=== PATIENT | male | born 1975 | race Caucasian/White ===

== ENCOUNTER 2017-03-15 16:54 | Emergency (ER) | payer BC ==
[2017-03-15 17:08] VITALS: BP 167/98
[2017-03-15] MEDS ORDERED: Ketorolac 60 MG/2 ML SDV IM ONE (17:15)
[2017-03-15] MEDS ORDERED: Acetaminophen/oxyCODONE 325-5 MG Tab PO ONE (17:16)
--- NOTE | 2017-03-15 17:43 | EDM.PDOC ---
ED HPI GENERAL MEDICAL PROBLEM - General Chief Complaint: ENT Problem Stated Complaint: INFECTED TOOTH Time Seen by Provider: 03/15/17 17:40 Source of Information: Reports: Patient, Family History Limitations: Reports: No Limitations - History of Present Illness INITIAL COMMENTS - FREE TEXT/NARRATIVE: pt a rrived here with a painful left lower post molar. He spiked a temp of 103 at home. He has a 101 degree temop now, The pain in the ttoth has increased markedly. Onset: Today Duration: Hour(s): Location: Reports: Face Associated Symptoms: Reports: Other ( total body aches. ) Left Lower Tooth/Teeth Pain Score (Numeric/FACES): 10 - Related Data Allergies Allergy/AdvReac Type Severity Reaction Status Date / Time naproxen [From Naprosyn] Allergy Abdominal Verified 03/15/17 17:20 Pain Home Meds: Home Meds Ibuprofen 600 mg PO Q4HR PRN 03/24/15 [History] Past Medical History Musculoskeletal History: Reports: Back Pain, Chronic Neurological History: Reports: Concussion Social & Family History - Tobacco Use Smoking Status *Q: Former Smoker Years of Tobacco use: 20 Used Tobacco, but Quit: Yes Month Tobacco Last Used: 8 years ago Second Hand Smoke Exposure: No - Caffeine Use Caffeine Use: Reports: Coffee, Soda - Recreational Drug Use Recreational Drug Use: No ED ROS ENT - Review of Systems Review Of Systems: See Below Constitutional: Reports: Fever, Chills, Malaise HEENT: Reports: Dental Pain, Other ( Pt has increased pain in the left lower molar area. ) Respiratory: Reports: No Symptoms Cardiovascular: Reports: No Symptoms Endocrine: Reports: No Symptoms GI/Abdominal: Reports: No Symptoms : Reports: No Symptoms ED EXAM, ENT - Physical Exam Exam: See Below Text/Narrative:: pt arrived with a elevated temp and increased pain in the lower molar. on the left. Exam Limited By: No Limitations General Appearance: Alert, Anxious, Moderate Distress Ears: Normal TMs Nose: Normal Inspection Mouth/Throat: Other ( carious tooth in the posterior molar in lower left) Head: Atraumatic Neck: Normal Inspection Respiratory/Chest: No Respiratory Distress Cardiovascular: Regular Rate, Rhythm GI/Abdominal: Soft, Non-Tender (Male) Exam: Deferred Rectal (Males) Exam: Deferred Back: Normal Inspection Extremities: Normal Inspection, Normal Capillary Refill Psychiatric: Normal Affect Course - Vital Signs Last Recorded V/S: Last Vital Signs Temp 38.6 C H 03/15/17 17:13 Pulse 118 H 03/15/17 17:13 Resp 13 03/15/17 17:13 BP 167/98 H 03/15/17 17:13 Pulse Ox 96 03/15/17 17:13 - Orders/Labs/Meds Orders: Active Orders 24 hr Category Date Time Status UA W/MICROSCOPIC [URIN] Urgent Lab 03/15/17 17:33 Received Labs: Laboratory Tests 03/15/17 03/15/17 Range/Units 17:25 17:25 WBC 8.4 (4.5-11.0) K/uL RBC 5.50 (4.30-5.90) M/uL Hgb 16.6 H (12.0-15.0) g/dL Hct 47.5 (40.0-54.0) % MCV 86 (80-98) fL MCH 30 (27-31) pg MCHC 35 (32-36) % Plt Count 134 L (150-400) K/uL Neut % (Auto) 82 H (36-66) % Lymph % (Auto) 9 L (24-44) % Iron % (Auto) 9 H (2-6) % Eos % (Auto) 0 L (2-4) % Baso % (Auto) 1 (0-1) % Sodium 135 L (140-148) mmol/L Potassium 4.0 (3.6-5.2) mmol/L Chloride 100 (100-108) mmol/L Carbon Dioxide 26 (21-32) mmol/L Anion Gap 13.0 (5.0-14.0) mmol/L BUN 13 (7-18) mg/dL Creatinine 1.0 (0.8-1.3) mg/dL Est Cr Clr Drug Dosing 107.78 mL/min Estimated GFR (MDRD) > 60 (>60) Glucose 108 H (74-106) mg/dL Calcium 8.7 (8.5-10.1) mg/dL Total Bilirubin 0.7 (0.2-1.0) mg/dL AST 22 (15-37) U/L ALT 55 (12-78) U/L Alkaline Phosphatase 84 (46-116) U/L Total Protein 8.0 (6.4-8.2) g/dL Albumin 4.1 (3.4-5.0) g/dL Globulin 3.9 H (2.3-3.5) g/dL Albumin/Globulin Ratio 1.1 L (1.2-2.2) Meds: Medications Discontinued Medications Generic Name Dose Route Start Last Admin Trade Name Freq PRN Reason Stop Dose Admin Ketorolac Tromethamine 60 mg 03/15/17 17:15 03/15/17 17:31 Toradol IM 03/15/17 17:16 60 mg ONETIME ONE Administration Oxycodone/Acetaminophen 1 tab 03/15/17 17:16 03/15/17 17:30 Percocet 325-5 Mg PO 03/15/17 17:17 1 tab ONETIME ONE Administration - Re-Assessments/Exams Free Text/Narrative Re-Assessment/Exam: 03/15/17 17:59 pt was given rocephen 1gm im, torodol 60mg . tick studies were drawn because of the high fever. Departure - Departure Time of Disposition: 18:04 Disposition: Home, Self-Care 01 Condition: Fair Clinical Impression: Infected tooth - Discharge Information Referrals: PCP,None [Primary Care Provider] - Forms: ED Department Discharge Care Plan Goals: push fluids, motrin 600mg tid, norco 5/325 q6h prn for pain, clindomycin 300mg tid, dental referal. . - My Orders Last 24 Hours: My Active Orders 03/15/17 17:33 UA W/MICROSCOPIC [URIN] Urgent - Assessment/Plan Last 24 Hours: My Active Orders 03/15/17 17:33 UA W/MICROSCOPIC [URIN] Urgent
[2017-03-15] MEDS ORDERED: cefTRIAXone 1 GM, Lidocaine 1% 2.1 ML IM ONE ×2 (17:55)
== END 2017-03-15 18:44 | disposition home or self-care (01) ==
LOC: JP.ED 16:54
DX: K04.7 Periapical abscess without sinus (principal); Z88.8 Allergy status to other drugs, medicaments and biological substances; Z87.891 Personal history of nicotine dependence
CPT/HCPCS: 36415; 80053; 81001; 85025; 86618; 86666; 96372; 99283; A9270; J0696; J1885

== ENCOUNTER 2017-11-22 11:17 | Emergency (ER) | payer BC ==
[2017-11-22 11:37] VITALS: BP 144/92
--- NOTE | 2017-11-22 12:01 | EDM.PDOC ---
ED HPI GENERAL MEDICAL PROBLEM - General Chief Complaint: Lower Extremity Injury/Pain Stated Complaint: RIGHT HIP PAIN Time Seen by Provider: 11/22/17 11:56 Source of Information: Reports: Patient History Limitations: Reports: No Limitations - History of Present Illness INITIAL COMMENTS - FREE TEXT/NARRATIVE: pt woke up with severe pain in his rt hip/ He has had a total hip. He is doing some better at this point but it still feels very tight. Onset: Today, Sudden Duration: Hour(s): Location: Reports: Lower Extremity, Right Associated Symptoms: Reports: No Other Symptoms right hip Pain Score (Numeric/FACES): 4 - Related Data Allergies Allergy/AdvReac Type Severity Reaction Status Date / Time naproxen [From Naprosyn] Allergy Abdominal Verified 11/22/17 11:34 Pain Home Meds: Home Meds Ibuprofen 600 - 1,000 mg PO BID 03/24/15 [History] Past Medical History Cardiovascular History: Reports: Hypertension Musculoskeletal History: Reports: Back Pain, Chronic, Osteoarthritis Neurological History: Reports: Concussion Endocrine/Metabolic History: Reports: Obesity/BMI 30+ - Past Surgical History Musculoskeletal Surgical History: Reports: Arthroscopic Procedure, Hip Replacement Social & Family History - Tobacco Use Smoking Status *Q: Never Smoker Years of Tobacco use: 20 Used Tobacco, but Quit: Yes Month Tobacco Last Used: 8 years ago Second Hand Smoke Exposure: No - Caffeine Use Caffeine Use: Reports: None - Alcohol Use Days Per Week of Alcohol Use: 2 Number of Drinks Per Day: 2 Total Drinks Per Week: 4 - Recreational Drug Use Recreational Drug Use: No Review of Systems - Review of Systems Review Of Systems: See Below Constitutional: Reports: No Symptoms Eyes: Reports: No Symptoms Ears: Reports: No Symptoms Nose: Reports: No Symptoms Mouth/Throat: Reports: No Symptoms Respiratory: Reports: No Symptoms Cardiovascular: Reports: No Symptoms GI/Abdominal: Reports: No Symptoms Musculoskeletal: Reports: Other (pain in the rt hip. ) Neurological: Reports: No Symptoms ED EXAM, GENERAL - Physical Exam Exam: See Below Free Text/Narrative:: pt arrived with pain in the rt hip This came on quite acutely this am and was severe for awhile and is now better. He had a total hip done in Jun. He was concerned that it was dislocated. Exam Limited By: No Limitations General Appearance: Alert, Anxious, Moderate Distress Ears: Normal TMs Nose: Normal Inspection Throat/Mouth: Normal Inspection Head: Atraumatic Neck: Normal Inspection Respiratory/Chest: No Respiratory Distress Cardiovascular: Regular Rate, Rhythm GI/Abdominal: Soft, Non-Tender (Male) Exam: Deferred Rectal (Males) Exam: Deferred Back Exam: Other (pain in the lateral hip. He has no pain over the buttock area. he has no pain down the back of the hip. ) Neurological: Alert, Oriented, Normal Cognition Course - Vital Signs Last Recorded V/S: Last Vital Signs Temp 36.7 C 11/22/17 11:39 Pulse 104 H 11/22/17 11:39 Resp 18 11/22/17 11:39 BP 144/92 H 11/22/17 11:39 Pulse Ox 97 11/22/17 11:39 - Orders/Labs/Meds Orders: Active Orders 24 hr Category Date Time Status Hip Min 2V or 3V Rt [CR] Stat Exams 11/22/17 11:28 Taken - Re-Assessments/Exams Free Text/Narrative Re-Assessment/Exam: 11/22/17 12:21 xray of the hip was done which looks completely intact and no sign of dislocation. He has alot of muscle tightness around the hip . He has a rash which does not look like shingles. He has a history of a total body rash and I feel this is a occurence of this over the incision. Departure - Departure Time of Disposition: 12:23 Disposition: Home, Self-Care 01 Condition: Fair Clinical Impression: Muscle spasm, Hip joint replacement status - Discharge Information Referrals: Layton Bishop [employer] [Primary Care Provider] - Forms: ED Department Discharge Care Plan Goals: moist warm heat to area, range of motion, flexeril 10mg hs to relax muscles. motrin as needed for pain If persistent problems see Dr Staples in the next 4- 5 days. - My Orders Last 24 Hours: My Active Orders 11/22/17 11:28 Hip Min 2V or 3V Rt [CR] Stat - Assessment/Plan Last 24 Hours: My Active Orders 11/22/17 11:28 Hip Min 2V or 3V Rt [CR] Stat
--- NOTE | 2017-11-22 13:45 | CR ---
Hip Min 2V or 3V Rt HISTORY: Hip replacement, pain. COMPARISON: None FINDINGS: Right hip arthroplasty change. Excellent alignment. No acute fracture.
== END 2017-11-22 12:33 | disposition home or self-care (01) ==
LOC: JP.ED 11:17
DX: M62.838 Other muscle spasm (principal); Z96.641 Presence of right artificial hip joint; Z87.891 Personal history of nicotine dependence
CPT/HCPCS: 73502-26-RT; 73502-RT; 99284

== ENCOUNTER 2019-04-28 11:02 | Emergency (ER) | payer BC ==
[2019-04-28 11:28] VITALS: PULSE 74
[2019-04-28] MEDS ORDERED: fentaNYL 100 MCG/2 ML SDV IVPUSH PRN (11:33)
--- NOTE | 2019-04-28 11:41 | EDM.PDOC ---
ED HPI GENERAL MEDICAL PROBLEM - General Chief Complaint: Lower Extremity Injury/Pain Stated Complaint: MEDICAL VIA [facility] Time Seen by Provider: 04/28/19 11:30 Source of Information: Reports: Patient History Limitations: Reports: No Limitations - History of Present Illness INITIAL COMMENTS - FREE TEXT/NARRATIVE: Left hip and leg pain for a couple of days, and it significantly increased to day while in the shower. Pain is actually in the left SIJ and radiates into the left leg. it is sharp and severe. Increased with weight bearing. No position feels better. Pain radiates into the left leg and is associated with left anterior thigh numbness. No weakness, saddle paresthesias, bowel or bladder problems. History of bilateral JOSEY in 2017 and 18. No history of back problems. Not immunosuppressed. Hasn't used anything for pain. Left Hip Pain Score (Numeric/FACES): 7 - Related Data Allergies Allergy/AdvReac Type Severity Reaction Status Date / Time naproxen [From Naprosyn] Allergy Abdominal Verified 04/28/19 11:23 Pain Home Meds: Home Meds NK [No Known Home Meds] 04/28/19 [History] Past Medical History HEENT History: Reports: Impaired Vision Cardiovascular History: Reports: Hypertension Respiratory History: Reports: Sleep Apnea Musculoskeletal History: Reports: Back Pain, Chronic, Osteoarthritis Neurological History: Reports: Concussion Endocrine/Metabolic History: Reports: Obesity/BMI 30+ - Past Surgical History Musculoskeletal Surgical History: Reports: Arthroscopic Procedure, Hip Replacement Social & Family History - Tobacco Use Smoking Status *Q: Former Smoker Used Tobacco, but Quit: Yes Month/Year Tobacco Last Used: 0 - Caffeine Use Caffeine Use: Reports: None - Alcohol Use Days Per Week of Alcohol Use: 2 Number of Drinks Per Day: 5 Total Drinks Per Week: 10 - Recreational Drug Use Recreational Drug Use: No Review of Systems - Review of Systems Review Of Systems: See Below Eyes: Reports: No Symptoms Ears: Reports: No Symptoms Nose: Reports: No Symptoms Mouth/Throat: Reports: No Symptoms Respiratory: Reports: No Symptoms Cardiovascular: Reports: No Symptoms GI/Abdominal: Reports: No Symptoms Genitourinary: Reports: No Symptoms Musculoskeletal: Reports: Back Pain, Leg Pain, Muscle Stiffness Skin: Reports: No Symptoms Neurological: Reports: Numbness, Paresthesia Psychiatric: Reports: No Symptoms ED EXAM, GENERAL - Physical Exam Exam: See Below Exam Limited By: No Limitations General Appearance: Alert, WD/WN, Moderate Distress, Obese Respiratory/Chest: No Respiratory Distress Back Exam: No: CVA Tenderness (R), CVA Tenderness (L), Paraspinal Tenderness, Vertebral Tenderness Extremities: Normal Range of Motion, Non-Tender Neurological: Alert, Oriented, Normal Cognition, Normal Reflexes Psychiatric: Normal Affect, Normal Mood, Anxious Skin Exam: Warm, Dry Course - Vital Signs Last Recorded V/S: Last Vital Signs Temp 35.9 C 04/28/19 15:00 Pulse 74 04/28/19 15:00 Resp 16 04/28/19 15:00 BP 144/84 H 04/28/19 15:00 Pulse Ox 96 04/28/19 15:00 - Orders/Labs/Meds Orders: Active Orders 24 hr Category Date Time Status fentaNYL [Sublimaze] Med 04/28/19 11:33 Active 50 mcg IVPUSH Q6H PRN Medication Orders Fentanyl (Sublimaze) 50 mcg IVPUSH Q6H PRN PRN Reason: Pain (severe 7-10) Last Admin: 04/28/19 11:45 Dose: 50 mcg Labs: Laboratory Tests 04/28/19 04/28/19 Range/Units 14:06 14:06 WBC 6.5 (4.5-11.0) K/uL RBC 5.24 (4.30-5.90) M/uL Hgb 15.6 H D (12.0-15.0) g/dL Hct 46.7 (40.0-54.0) % MCV 89 (80-98) fL MCH 30 (27-31) pg MCHC 33 (32-36) % Plt Count 141 L (150-400) K/uL Neut % (Auto) 73 H (36-66) % Lymph % (Auto) 19 L (24-44) % [place] % (Auto) 7 H (2-6) % Eos % (Auto) 0 L (2-4) % Baso % (Auto) 1 (0-1) % ESR 8 (0-20) mm/hr Sodium 138 L (140-148) mmol/L Potassium 4.4 (3.6-5.2) mmol/L Chloride 104 (100-108) mmol/L Carbon Dioxide 23 (21-32) mmol/L Anion Gap 15.4 H (5.0-14.0) mmol/L BUN 15 (7-18) mg/dL Creatinine 1.0 (0.8-1.3) mg/dL Est Cr Clr Drug Dosing 105.62 mL/min Estimated GFR (MDRD) > 60 (>60) Glucose 149 H (74-106) mg/dL Calcium 9.2 (8.5-10.1) mg/dL Meds: Medications Generic Name Dose Route Start Last Admin Trade Name Freq PRN Reason Stop Dose Admin Fentanyl 50 mcg 04/28/19 11:33 04/28/19 11:45 Sublimaze IVPUSH 50 mcg Q6H PRN Administration Pain (severe 7-10) Discontinued Medications Generic Name Dose Route Start Last Admin Trade Name Freq PRN Reason Stop Dose Admin Hydromorphone HCl 1 mg 04/28/19 12:14 04/28/19 12:49 Dilaudid IVPUSH 04/28/19 12:15 1 mg ONETIME ONE Administration Hydromorphone HCl 1 mg 04/28/19 15:38 Dilaudid IVPUSH 04/28/19 15:39 ONETIME ONE - Re-Assessments/Exams Free Text/Narrative Re-Assessment/Exam: 04/28/19 11:44 The patient was examined and pain meds and xray ordered. Free Text/Narrative Re-Assessment/Exam: 04/28/19 12:16 xray reviewed and discussed with the patient and his . No new abnormalities on the images were noted. He was given dilaudid 1 mg IV. Discussed disposition and will reassess in 1 hour to see if he can go home. Free Text/Narrative Re-Assessment/Exam: 04/28/19 14:09 Unable to ambulate due to pain. Contacted hospitalist at [facility]. He asked for more w/u. CT lumbar spine and labs ordered. 04/28/19 15:29 He has normal labs including CBC, basic metabolic profile and ESR. He had a lumbar CT that showed mild spinal stenosis at L3-4 and L4-5. Discussed with Dr Teresa (Hospitalist at [facility] in [place]) and he accepted the patient in transfer. The patient and his agree with his plan. Departure - Departure Time of Disposition: 15:40 Disposition: DC/Tfer to Medicaid Nur Fac 64 Condition: Good, Fair Clinical Impression: Hip joint replacement status, Intractable back pain - Discharge Information *PRESCRIPTION DRUG MONITORING PROGRAM REVIEWED*: Not Applicable *COPY OF PRESCRIPTION DRUG MONITORING REPORT IN PATIENT VANE: Not Applicable Instructions: Muscle Strain, [id number] Referrals: Layton Bishop NP [Primary Care Provider] - Forms: ED Department Discharge, ED Summary Discharge - My Orders Last 24 Hours: My Active Orders 04/28/19 11:33 fentaNYL [Sublimaze] 50 mcg IVPUSH Q6H PRN - Assessment/Plan Last 24 Hours: My Active Orders 04/28/19 11:33 fentaNYL [Sublimaze] 50 mcg IVPUSH Q6H PRN
[2019-04-28] MEDS ORDERED: HYDROmorphone 1 MG/ML Syringe IVPUSH ONE ×2 (12:14→15:38)
--- NOTE | 2019-04-28 13:07 | CRLCR ---
INDICATION: Left hip pain. COMPARISON: None available. FINDINGS: The left hip was examined with PA and frogleg lateral views for a total of two views. The components of a left total hip prosthesis are in anatomic alignment, with no sign of fracture, loosening, or dislocation. The visualized bony pelvis and soft tissues are normal in appearance. IMPRESSION: Satisfactory appearance of components of a left total hip prosthesis. Nothing seen to correlate with history of pain. Dictated by Raymond Adame MD @ Apr 28 2019 1:03PM Signed by Dr. Raymond Adame @ Apr 28 2019 1:04PM
--- NOTE | 2019-04-28 15:12 | CRLCT ---
INDICATION: Back pain COMPARISON: None available TECHNIQUE: CT examination of the lumbar spine is performed with spiral technique without contrast. 3 mm thick axial, sagittal and coronal reconstructions were made. 3D surface rendered reconstructions were made with rotation around the vertical axis. Please note that all CT scans at this facility use dose modulation, iterative reconstruction, and/or weight-based dosing when appropriate to reduce radiation dose to as low as reasonably achievable. FINDINGS: : There is minimal scoliosis of the lumbar spine convex towards the left with the apex at the L4 level. The vertebral bodies are normal in height and they are in anatomic alignment. There is no sign of fracture or subluxation. 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 T12-L1: Normal. L1-2: Normal. L2-3: Normal disc centrally with no sign of spinal stenosis. There is mild bilateral lateral disc bulging into the neural foramina without contact with the exiting nerve roots. L3-4: Mild spinal stenosis from congenital narrowing, mild diffuse disc bulging, and mild ligamentum flavum hypertrophy. The AP thecal sac diameter is decreased to 10 millimeters. There is mild bilateral lateral disc bulging into the neural foramina without contact with the exiting nerve roots. L4-5: Mild spinal stenosis from congenital narrowing, mild diffuse disc bulging, and mild ligamentum flavum hypertrophy. The AP thecal sac diameter is decreased to 11 millimeters. Moderate right lateral disc bulging into the neural foramina with osteophytic ridging, effacing a mild amount of perineural fat from around the right L4 nerve root, indicating mild compression of the nerve root. Mild left lateral disc bulging into the neural foramina without contact with the exiting nerve root. L5-S1: Minimal diffuse disc bulging which comes in contact with the anterior thecal sac but does not narrow it. No spinal stenosis. There is mild bilateral lateral disc bulging into the neural foramina without contact with the exiting nerve roots. Intervertebral discs are normal in height. The visualized abdominal viscera is normal in appearance. IMPRESSION: Mild spinal stenosis at L3-4 and L4-5. Mild compression of the right L4 nerve root in the right L4-5 neural foramina from moderate lateral disc bulging and osteophytic ridging. Please note that all CT scans at this facility use dose modulation, iterative reconstruction, and/or weight-based dosing when appropriate to reduce radiation dose to as low as reasonably achievable. Dictated by Raymond Adame MD @ Apr 28 2019 3:02PM Signed by Dr. Raymond Adame @ Apr 28 2019 3:11PM
[2019-04-28 15:20] VITALS: BP 144/84
== END 2019-04-28 16:06 ==
LOC: JP.ED 11:02
DX: M54.5 Low back pain (principal); I10 Essential (primary) hypertension; Z96.641 Presence of right artificial hip joint; Z88.6 Allergy status to analgesic agent; Z87.891 Personal history of nicotine dependence
CPT/HCPCS: 36415; 72131; 73502; 80048; 85025; 85651; 96374; 96375; 96376; 99284; J1170; J3010

== ENCOUNTER 2020-02-02 00:13 | Emergency (ER) | payer BC ==
--- NOTE | 2020-02-02 00:46 | EDM.PDOC ---
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 He denies any specific injury or overexertion. The pain is centered between both scapulae and radiates to the right and left and extends into each arm to the level of the elbow on the medial aspect of each elbow. He golfed earlier on 31 January for 3-1/2 hours but didn't notice a distinctly sharper change at once. He tried a single dose of ibuprofen at home which didn't change anything. He has a history of allergic rhinitis and also degenerative joint disease with bilateral hip arthroplasty, the last arthroplasty being 18 months ago. He would not have come in tonight however at home his blood pressure was elevated into the 180 range and he and his became concerned, prompting him to drive and tonight. The pain in the back does not seem to travel up or down the back to any degree. He has no change in strength or sensation in either arm. Onset: Gradual Duration: Hour(s): (8) Location: Reports: Back Quality: Reports: Ache Severity: Moderate Improves with: Reports: None Worsens with: Reports: None Associated Symptoms: Denies: Chest Pain, Shortness of Breath Treatments PONY EDGER: Reports: NSAIDS Back Pain Score (Numeric/FACES): 7 - Related Data Allergies Allergy/AdvReac Type Severity Reaction Status Date / Time naproxen [From Naprosyn] Allergy Abdominal Verified 04/28/19 11:23 Pain Home Meds: Home Meds NK [No Known Home Meds] 04/28/19 [History] Past Medical History HEENT History: Reports: Impaired Vision Cardiovascular History: Reports: Hypertension Respiratory History: Reports: Sleep Apnea Musculoskeletal History: Reports: Back Pain, Chronic, Osteoarthritis Neurological History: Reports: Concussion Endocrine/Metabolic History: Reports: Obesity/BMI 30+ - Past Surgical History Musculoskeletal Surgical History: Reports: Arthroscopic Procedure, Hip Replacement Social & Family History - Caffeine Use Caffeine Use: Reports: Soda - Recreational Drug Use Recreational Drug Use: No ED ROS GENERAL - Review of Systems Review Of Systems: See Below Constitutional: Reports: No Symptoms HEENT: Reports: No Symptoms, Rhinitis (Springtime allergies, especially bad this year.) Respiratory: Reports: No Symptoms Cardiovascular: Reports: No Symptoms Musculoskeletal: Reports: Back Pain (Mid-thoracic as described.), Joint Pain ( Pain at both elbows, medial aspects.) Neurological: Denies: Tingling, Difficulty Walking, Weakness ED EXAM, UPPER BACK/NECK PAIN - Physical Exam Exam: See Below Text/Narrative:: Amanda adult male lying on the bed in room 4 with head of bed elevated at 45 and both arms and hands up and behind his head/neck. Exam Limited By: No Limitations General Appearance: Alert, Mild Distress Neck Exam: Non-Tender, Full Range of Motion Back Exam: Paraspinal Tenderness. No: Muscle Spasm (Diffuse pain at the mid scapular level of the vertebrae radiating with equal intensity right and left as described.) Neurologic: No Motor/Sensory Deficits Course - Vital Signs Last Recorded V/S: Last Vital Signs Temp 36.6 C 02/02/20 00:22 Pulse 73 02/02/20 00:56 Resp 18 02/02/20 00:22 BP 161/108 H 02/02/20 00:56 Pulse Ox 100 02/02/20 00:22 - Orders/Labs/Meds Meds: Medications Discontinued Medications Generic Name Dose Route Start Last Admin Trade Name Odalys PRN Reason Stop Dose Admin Ketorolac Tromethamine 60 mg 02/02/20 01:24 Toradol IM 02/02/20 01:25 ONETIME ONE - Re-Assessments/Exams Free Text/Narrative Re-Assessment/Exam: 02/02/20 01:01 It sounds like discogenic pain given its radiation to each elbow and central thoracic origin. As we talked, he stated that the pain suddenly decreased to a level of 2/10 compared to 7/10 as we started the conversation. I will obtain a PA and lateral chest x-ray initially. A CT scan of the thoracic spine may provide more detailed given his body habitus but will start with standard imaging. 02/02/20 01:12 02/02/20 01:24 I reviewed his images which shows some straightening of the thoracic spine but no obvious bony abnormality. He is reclining in the bed as he was previously and his pain is again 6-7/10. When they were doing his images, placing his arms over his head seemed to worsen the back and arm/elbow pain. I'm going to give him 60 mg of Toradol IM and send him with a prescription for some prednisone to use over the next week, 40 mg daily x 4 days then 20 mg daily x 3. He has cyclobenzaprine at home which she should take once he gets home to improve pain. His blood pressure was 161/108 when I returned to review these findings and I think it is reactive to his level of pain. Departure - Departure Time of Disposition: 01:29 Disposition: Home, Self-Care 01 Condition: Good Clinical Impression: Reactive hypertension Acute thoracic back pain Qualifiers: Back pain laterality: bilateral Qualified Code(s): M54.6 - Pain in thoracic spine - Discharge Information *PRESCRIPTION DRUG MONITORING PROGRAM REVIEWED*: Not Applicable *COPY OF PRESCRIPTION DRUG MONITORING REPORT IN PATIENT VANE: Not Applicable Referrals: Layton Bishop NP [Primary Care Provider] - Forms: ED Department Discharge Additional Instructions: Take 10 mg of Flexeril (cyclobenzaprine) when you get home tonight. 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 Avoid painful twisting or lifting activities with the upper back, neck, arms. If no improvement in symptoms by next week, recheck in clinic. Return to ER if feeling worse in anyway. I think your blood pressure elevation is due to the pain you're feeling in the upper back. Sepsis Event Note - Evaluation Sepsis Screening Result: No Definite Risk - Focused Exam Vital Signs: Vital Signs Temp Pulse Resp BP Pulse Ox 02/02/20 00:56 73 161/108 H 02/02/20 00:22 36.6 C 72 18 185/120 H 100 Date Exam was Performed: 02/02/20 Time Exam was Performed: 01:33
--- NOTE | 2020-02-02 01:13 | CRLCR ---
INDICATION: Mid thoracic back chest pain, radiating down to the elbows TECHNIQUE: Chest radiograph 3 views COMPARISON: None FINDINGS: Mediastinum: The mediastinum is normal in appearance. The heart silhouette is normal in size and morphology. Lung: Both lungs are unremarkable in appearance. No sign of pleural effusion seen. No pneumothorax is identified. Bone and Soft tissue: Unremarkable for age. IMPRESSION: 1. No acute cardiopulmonary disease is seen. Dictated by: Zaid Myers MD @ 02/02/2020 01:13:28 (Electronically Signed)
[2020-02-02] MEDS ORDERED: Ketorolac 60 MG/2 ML SDV IM ONE (01:24)
[2020-02-02 02:09] VITALS: BP 161/108; PULSE 73
== END 2020-02-02 01:41 | disposition home or self-care (01) ==
LOC: JP.ED 00:13
DX: M54.6 Pain in thoracic spine (principal); I10 Essential (primary) hypertension; Z88.6 Allergy status to analgesic agent; E66.9 Obesity, unspecified; Z68.41 Body mass index [BMI] 40.0-44.9, adult
CPT/HCPCS: 71046; 96372; 99283; J1885

== ENCOUNTER 2023-05-26 09:29 | Emergency (ER) | payer BC ==
[2023-05-26] MEDS ORDERED: Sodium Chloride 0.9% 10 ML Syringe FLUSH PRN (09:50)
[2023-05-26] MEDS ORDERED: Adenosine 6 MG/2 ML SDV IVPUSH ONE ×2 (09:51)
[2023-05-26 09:58] LABS: BASOPHILS ABSOLUTE AUTO 0.08 K/uL (0.00-0.10); BASOPHILS PERCENT AUTO 1.2 % (0.1-1.3); EOSINOPHILS ABSOLUTE AUTO 0.06 K/uL (0.00-0.40); EOSINOPHILS PERCENT AUTO 0.9 % (0.0-5.4); HEMATOCRIT 49.9 % (38.4-49.7); HEMOGLOBIN 17.3 g/dL (12.9-16.9); IMMATURE GRAN ABSOLUTE AUTO 0.03 K/uL (0.00-0.23); IMMATURE GRAN PERCENT AUTO 0.4 % (0.0-0.7); LYMPHOCYTES ABSOLUTE AUTO 1.88 K/uL (0.8-3.3); LYMPHOCYTES PERCENT AUTO 27.4 % (11.4-47.7); MEAN CORPUSCULAR HEMOGLOBIN 30.8 pg (31.6-35.5); MEAN CORPUSCULAR HGB CONC 34.7 g/dL (31.6-35.5); MEAN CORPUSCULAR VOLUME 88.9 fL (81.4-99.0); MONOCYTES ABSOLUTE AUTO 0.54 K/uL (0.20-0.90); MONOCYTES PERCENT AUTO 7.9 % (3.3-12.6); NEUTROPHILS ABSOLUTE AUTO 4.28 K/uL (1.0-7.6); NEUTROPHILS PERCENT AUTO 62.2 % (40.0-78.1); PLATELET COUNT,PLT 131 K/uL (130-375); RED BLOOD CELL COUNT 5.61 M/uL (4.14-5.76); WHITE BLOOD CELL COUNT,WBC 6.9 K/uL (3.2-11.0)
[2023-05-26] MEDS ORDERED: LORazepam 2 MG/ML SDV IVPUSH ONE (10:06)
[2023-05-26 10:24] LABS: CALCIUM 8.8 mg/dL (8.5-10.1); CREATININE 0.9 mg/dL (0.8-1.3); EST CRCL DRUG DOSING (CG) 112.57 mL/min; POTASSIUM,K 4.2 mmol/L (3.6-5.2); TROPONIN I HIGH SENSITIVITY 10.9 pg/mL (<=60.3)
[2023-05-26 10:29] LABS: ANION GAP 18.2 mmol/L (5.0-14.0); MAGNESIUM 1.9 mg/dL (1.8-2.4); TSH ULTRASENSITIVE 1.421 uIU/mL (0.358-3.740)
[2023-05-26 11:51] VITALS: BP 128/87; PULSE 100
== END 2023-05-26 11:49 | disposition home or self-care (01) ==
LOC: JP.ED 09:29
DX: I47.1 Supraventricular tachycardia (principal); I10 Essential (primary) hypertension; E11.9 Type 2 diabetes mellitus without complications; E66.9 Obesity, unspecified; Z86.16 Personal history of COVID-19; Z88.8 Allergy status to other drugs, medicaments and biological substances; Z88.6 Allergy status to analgesic agent; Z79.899 Other long term (current) drug therapy; Z79.84 Long term (current) use of oral hypoglycemic drugs; Z79.85 Long-term (current) use of injectable non-insulin antidiabetic drugs; Z68.41 Body mass index [BMI] 40.0-44.9, adult
CPT/HCPCS: 36415; 71045; 80048; 83735; 84443; 84484; 85025; 93005; 96374; 96375; 99285; J0153; J2060; J3490; 93010; 99284

== ENCOUNTER 2024-03-03 21:13 | Emergency (ER) | payer BC ==
[2024-03-03 23:07] VITALS: PULSE 88
[2024-03-03 23:13] VITALS: BP 106/67
== END 2024-03-04 | disposition home or self-care (01) ==
LOC: JP.ED 21:13
DX: S09.90XA Unspecified injury of head, initial encounter (principal); I10 Essential (primary) hypertension; E11.9 Type 2 diabetes mellitus without complications; Z79.84 Long term (current) use of oral hypoglycemic drugs; Z79.899 Other long term (current) drug therapy; Z86.16 Personal history of COVID-19; W10.9XXA Fall (on) (from) unspecified stairs and steps, initial encounter; Y93.89 Activity, other specified
CPT/HCPCS: 70450; 72125; 76377; 99283